=== PATIENT | female | born 1950 | race African-American/Black ===

== ENCOUNTER 2019-12-07 13:26 | Inpatient (IN) | payer MEDICARE ==
[~2019-12-07] VITALS: Ht 165.1 cm; Wt 79.8 kg
[~2019-12-07 13:26] MED LIST: ALENDRONATE SOD70 MG PO; CALAN SR240 MG PO; FERROUS SULFAT325 MG PO; FISH OIL 1,0001 CA1 PO; GLUCOPHAGE500 MG PO; HYDROCHLOROTH12.5 M1 PO; LEVAQUIN500 MG PO; LOVASTATIN20 MG PO; LOVENOX40 MG/0.4 SC; MAVIK2 MG PO; MULTIPLE VITAMI1 TA1 PO; NIACIN250 MG PO; OS-CAL500 MG PO; OYST-CAL-5001 TAB PO; PERCOCET 10/3251 TA1 PO; TRIGLIDE160 MG PO
[2019-12-07] MEDS ORDERED: VERELAN180 MG PO (13:33)
[2019-12-07] MEDS ORDERED: CELEBREX200 MG PO (13:35)
[2019-12-07 14:23] LABS: ANION GAP 18.4 mmol/L (8-16); CARBON DIOXIDE 19.8 mmol/L (21.0-32.0); CREATININE - SERUM 1.7 mg/dL (0.6-1.3); POTASSIUM - SERUM 5.2 mmol/L (3.5-5.1)
[2019-12-07 14:31] LABS: ALBUMIN 2.3 g/dL (3.4-5.0); BILIRUBIN - TOTAL 0.58 mg/dL (0.2-1.3); URIC ACID 6.9 mg/dL (2.6-7.2)
[2019-12-07 14:47] LABS: HEMATOCRIT 28.7 % (36.0-48.0); HEMOGLOBIN 8.9 g/dL (12-16); MCH 27.2 pg (26.0-34.0); MCV 87.8 fL (80.0-100.0); MEAN PLATELET VOLUME 8.9 fL (7.4-10.4); PLATELET COUNT 623 10x3/uL (130-400); RBC 3.27 10x6/uL (4.00-5.40); RDW 14.3 % (11.5-14.5); WBC 109.7 10x3/uL (4.8-10.8)
[2019-12-07 15:21] LABS: CKMB 0.4 U/L (0.0-3.6); CREATINE KINASE 59 UL (21-215); TROPONIN-I < 0.017 ng/mL (0.000-0.060)
[2019-12-07 15:28] LABS: EOSINOPHILS 2 % (0-7); LYMPHOCYTES 71 % (15-50); MONOCYTES 2 % (2-11); NEUTROPHILS 25 % (40-80); PLATELET ESTIMATE INCREASED
[2019-12-07 16:18] LABS: ERYTHROCYTE SEDIMENTATION RATE 124 mm/hr (0-30)
[2019-12-07 16:21] VITALS: BP 120/56
--- NOTE | 2019-12-07 16:25 | NUR ---
PT TO CT
--- NOTE | 2019-12-07 16:56 | NUR ---
FLU SWAB TO LAB
--- NOTE | 2019-12-07 17:49 | NUR ---
URINE TO LAB
[2019-12-07 18:00] LABS: BILIRUBIN NEGATIVE (NEGATIVE); GLUCOSE NEGATIVE (NEGATIVE); KETONE SMALL mg/dL (NEGATIVE); NITRITE NEGATIVE (NEGATIVE); SPECIFIC GRAVITY 1.015 (1.005-1.020); UROBILINOGEN NORMAL (NORMAL)
--- NOTE | 2019-12-07 19:59 | NUR ---
REPORT TO SHIRA Villanueva RN
[2019-12-07 20:21] VITALS: BP 122/61
--- NOTE | 2019-12-07 21:00 | NUR ---
PATIENT TO ROOM 2238 VIA STRETCHER. TRANSFERED TO BED X4 ASSIST. NO S/S OF DISTRESS OBSERVED, RR EVEN AND UNLABORED ON ROOM AIR. VSS. PIV TO LT HAND INFUSING NS @100ML/HR. PATIENT DENIES NEEDS AT THIS TIME. CL IN REACH, BED LOCKED AND LOWERED. WILL CTM. QUICK START COMPLETED.
[2019-12-07 21:31] VITALS: BP 138/67; BMI 29.3
[2019-12-08] VITALS: BP 123/55
[2019-12-08 04:00] VITALS: BP 140/68
--- NOTE | 2019-12-08 04:53 | NUR ---
ASSISTED PATIENT TO VOID IN BEDPAN.
[2019-12-08 06:25] LABS: ALBUMIN 1.8 g/dL (3.4-5.0); BILIRUBIN - TOTAL 0.43 mg/dL (0.2-1.3); CALCIUM 8.8 mg/dL (8.5-10.1); CARBON DIOXIDE 22.4 mmol/L (21.0-32.0); CREATININE - SERUM 1.4 mg/dL (0.6-1.3); MAGNESIUM - SERUM 1.4 mg/dL (1.8-2.4); PHOSPHOROUS 2.5 mg/dL (2.5-4.9); PROTEIN - SERUM 6.4 g/dL (6.4-8.2)
[2019-12-08 06:26] LABS: ANION GAP 17.8 mmol/L (8-16); POTASSIUM - SERUM 4.2 mmol/L (3.5-5.1)
--- NOTE | 2019-12-08 06:35 | NUR ---
MAGNESIUM 1.4 THIS AM. COVERED PER PROTOCOL.
[2019-12-08 06:43] LABS: BASOPHILS 0.1 % (0-2); EOSINOPHILS 0 % (0-7); HEMATOCRIT 23.4 % (36.0-48.0); IMMATURE GRANULOCYTES 0.3 % (0-5); LYMPHOCYTES 84.2 % (15-50); MCHC 30.8 g/dL (31.0-37.0); MCV 87.6 fL (80.0-100.0); MEAN PLATELET VOLUME 8.8 fL (7.4-10.4); MONOCYTES 3.2 % (2-11); NEUTROPHILS 12.2 % (40-80); PLATELET COUNT 533 10x3/uL (130-400); RBC 2.67 10x6/uL (4.00-5.40); RDW 14.3 % (11.5-14.5)
--- NOTE | 2019-12-08 07:05 | NUR ---
ALERT AND ORIENTED. NO C/O PAIN. NO S/S OF ACUTE DISTRESS NOTED. DENIES ANY NEEDS AT THIS TIME. CALL LIGHT IN REACH. WILL CONTINUE TO MONITOR.
[2019-12-08 07:27] LABS: WBC 91.9 10x3/uL (4.8-10.8)
[2019-12-08 07:29] LABS: HEMOGLOBIN 7.2 g/dL (12-16)
--- NOTE | 2019-12-08 09:24 | NUR ---
STARTED INFUSION OF 1ST UNIT OF PRBCS.
[2019-12-08 13:01] VITALS: BP 134/70
[2019-12-08 14:08] LABS: PATH REVIEW PERIPHERAL SMEAR REVIEWED
[2019-12-08 14:55] VITALS: Ht 165.1 cm; Wt 79.8 kg
[2019-12-08 16:34] LABS: % SATURATION 8 % (15-55); IRON 17 ug/dl (35-150); TOTAL IRON BIND CAPACITY 192 ug/dl (260-445); UNSAT IRON BIND CAPACITY 175 ug/dl (150-375)
[2019-12-08 17:24] VITALS: BP 171/79
--- NOTE | 2019-12-08 18:25 | NUR ---
ALERT AND ORIENTED. NO C/O PAIN. NO S/S OF ACUTE DISTRESS NOTED. DENIES ANY NEEDS AT THIS TIME. CALL LIGHT IN REACH. WILL CONTINUE TO MONITOR.
[2019-12-08 18:28] LABS: HEMATOCRIT 32.3 % (36.0-48.0); HEMOGLOBIN 10.4 g/dL (12-16)
[2019-12-08 20:00] VITALS: BP 131/81
--- NOTE | 2019-12-09 00:53 | NUR ---
RESTING IN BED WITH CALL LIGHT AND WATER IN REACH. REMAINS ON BEDREST. IV TO LEFT WRIST WITH NS AT 50ML/HR. SWELLING NOTED TO RIGHT HAND.
[2019-12-09 04:00] VITALS: BP 138/79
[2019-12-09 07:00] LABS: BASOPHILS 0.1 % (0-2); EOSINOPHILS 0 % (0-7); HEMATOCRIT 32.2 % (36.0-48.0); HEMOGLOBIN 10.2 g/dL (12-16); IMMATURE GRANULOCYTES 0.4 % (0-5); LYMPHOCYTES 84.9 % (15-50); MCH 27.3 pg (26.0-34.0); MCHC 31.7 g/dL (31.0-37.0); MCV 86.1 fL (80.0-100.0); MEAN PLATELET VOLUME 8.7 fL (7.4-10.4); MONOCYTES 3.2 % (2-11); NEUTROPHILS 11.4 % (40-80); PLATELET COUNT 462 10x3/uL (130-400); RBC 3.74 10x6/uL (4.00-5.40); RDW 14.6 % (11.5-14.5)
[2019-12-09 07:05] LABS: WBC 89.8 10x3/uL (4.8-10.8)
--- NOTE | 2019-12-09 07:05 | NUR ---
ALERT AND ORIENTED. NO C/O PAIN. NO S/S ACUTE DISTRESS NOTED. DENIES ANY NEEDS AT THIS TIME. SWELLING INCREASED THIS AM TO BILATERAL HANDS. CALL LIGHT IN REACH. WILL CONTINUE TO MONITOR.
[2019-12-09 07:07] LABS: ALBUMIN 1.8 g/dL (3.4-5.0); BILIRUBIN - TOTAL 0.57 mg/dL (0.2-1.3); CALCIUM 8.9 mg/dL (8.5-10.1); CARBON DIOXIDE 21.6 mmol/L (21.0-32.0); CREATININE - SERUM 1.2 mg/dL (0.6-1.3); MAGNESIUM - SERUM 1.3 mg/dL (1.8-2.4); PHOSPHOROUS 1.9 mg/dL (2.5-4.9); POTASSIUM - SERUM 4.6 mmol/L (3.5-5.1); PROTEIN - SERUM 6.8 g/dL (6.4-8.2)
[2019-12-09 09:32] VITALS: BP 186/96
[2019-12-09 12:40] VITALS: BP 190/88
[2019-12-09 16:53] VITALS: BP 140/80
--- NOTE | 2019-12-09 18:35 | NUR ---
I have reviewed this patient and I concur with the Shift Assessment completed by the Licensed Practical Nurse today this shift.
--- NOTE | 2019-12-09 18:45 | NUR ---
ALERT AND ORIENTED. NO C/O PAIN. NO S/S OF ACUTE DISTRESS NOTED. DENIES ANY NEEDS AT THIS TIME. CALL LIGHT IN REACH. WILL CONTINUE TO MONITOR.
[2019-12-09 20:00] VITALS: BP 120/69
--- NOTE | 2019-12-09 21:01 | NUR ---
OT NOTE: PT APPEARS UPSET AND ANGERY. PT STATED SHE IS NOT "GETTING ENOUGH PAIN MEDICATION." FAMILY MEMBER AGREED. FAMILY WANTED BRICE TO ENTER ANOTHER PATIENTS ROOM IN ORDER TO SEE IF MD IS PRESENT. BRICE NOIFIED NURSING OF SITUATION. NURSING AWARE. PT RECEIVED SCHEDULED PAIN RELIEF. PT COMPLETED SITTING BALANCE WITH SBA. PT REFUSED TO PARTICPATE IN FURTHER THERAPY TODAY. [id number] THANK YOU,BABS CAVAZOS
--- NOTE | 2019-12-10 02:41 | NUR ---
alert and orented able to voice needs and wants to staff. IV in place to left hand. no s/s of distress. call light and water in reach.
[2019-12-10 04:00] VITALS: BP 100/67
[2019-12-10 05:04] LABS: HEMATOCRIT 31.8 % (36.0-48.0); HEMOGLOBIN 10.1 g/dL (12-16); MCH 27.4 pg (26.0-34.0); MCHC 31.8 g/dL (31.0-37.0); MCV 86.2 fL (80.0-100.0); PLATELET COUNT 430 10x3/uL (130-400); RBC 3.69 10x6/uL (4.00-5.40); RDW 14.7 % (11.5-14.5); WBC 88.9 10x3/uL (4.8-10.8)
--- NOTE | 2019-12-10 05:09 | NUR ---
LAB CALLED WITH CRITICAL HIGH WHITE BLOOD COUNT OF 88.9 ON 12-09-19 WBC WAS 91.9 12-08-19 WBC WAS 109
[2019-12-10 05:11] LABS: ALBUMIN 1.7 g/dL (3.4-5.0); ANION GAP 12.5 mmol/L (8-16); BILIRUBIN - TOTAL 0.39 mg/dL (0.2-1.3); CALCIUM 9.3 mg/dL (8.5-10.1); CARBON DIOXIDE 24.1 mmol/L (21.0-32.0); CREATININE - SERUM 1.3 mg/dL (0.6-1.3); MAGNESIUM - SERUM 1.3 mg/dL (1.8-2.4); POTASSIUM - SERUM 4.6 mmol/L (3.5-5.1); PROTEIN - SERUM 6.7 g/dL (6.4-8.2)
[2019-12-10 05:12] LABS: PHOSPHOROUS 2.8 mg/dL (2.5-4.9)
[2019-12-10 05:18] LABS: LYMPHOCYTES 79 % (15-50); MONOCYTES 2 % (2-11); NEUTROPHILS 19 % (40-80); PLATELET ESTIMATE NORMAL
--- NOTE | 2019-12-10 07:10 | NUR ---
ALERT AND ORIENTED. NO C/O PAIN. NO S/S OF ACUTE DISTRESS NOTED. UP WITH PHYSICAL THERAPY. IV TO LEFT HAND, NS INFUSING @ 25ML/HR. SITE PATENT WITHOUT REDNESS OR SWELLING. ON ELECTROLYTE PROTOCOL, MAGNESIUM LOW AGAIN THIS AM. WILL FOLLOW PROTOCOL. DENIES ANY NEEDS AT THIS TIME. CALL LIGHT IN REACH. WILL CONTINUE TO MONITOR.
[2019-12-10 08:17] VITALS: BP 129/76
[2019-12-10 11:00] VITALS: BP 151/79
--- NOTE | 2019-12-10 13:25 | MORECARE ---
CASE MANAGEMENT DISCHARGE SUMMARY PATIENT: IDALIA SPAULDING UNIT: [id number] ADM DATE: 12/07/19 AGE: 69 : 48 SEX: F ROOM/BED: D.[facility]8 AUTHOR: LOBITO POLK PHYSICIAN: REFERRING PHYSICIAN: LENA SMITH MD DATE OF SERVICE: 12/10/19 Discharge Plan Patient Name: IDALIA SPAULDING Facility: [facility]:[place] : 1950 Planned Disposition: Home Anticipated Discharge Date: Discharge Date: Expected LOS: Initial Reviewer: [email or web address] Initial Review Date: 12/10/2019 Generated: 12/10/19 2:24 pm Patient Name: IDALIA SPAULDING Page [id number] at 1325 All edits/amendments must be made on the electronic document DICTATION DATE: 12/10/19 1324 TRANSLATOR INTERPRETER: KADEEM 12/10/19 1324 RPT#: [id number] DC DATE: STATUS: ADM IN [facility] [address] [place] [address] END OF REPORT
--- NOTE | 2019-12-10 13:33 | MORECARE ---
CASE MANAGEMENT DISCHARGE SUMMARY PATIENT: IDALIA SPAULDING UNIT: [id number] ADM DATE: 12/07/19 AGE: 69 : 48 SEX: F ROOM/BED: D.[facility]8 AUTHOR: LOBITO POLK PHYSICIAN: REFERRING PHYSICIAN: LENA SMITH MD DATE OF SERVICE: 12/10/19 Discharge Plan Patient Name: IDALIA SPAULDING Facility: [facility]:[place] : 1950 Planned Disposition: Home Anticipated Discharge Date: Discharge Date: Expected LOS: Initial Reviewer: [email or web address] Initial Review Date: 12/10/2019 Generated: 12/10/19 2:33 pm DCPIA - Discharge Planning Initial Assessment Updated by [email or web address]: Sabi Irvin on 12/10/19 1:31 pm * Is the patient Alert and Oriented? Yes * How many steps to enter\exit or inside your home? several/0 * PCP Dr. Shirley * Pharmacy [facility] in [place] * Preadmission Environment Home with Family * ADLs Partial Dependent * Partial ADLs (Assistance needed) Ambulation * Equipment Bedside Commode Rolling Walker Shower Chair * List name and contact numbers for known caregivers / representatives who currently or will assist patient after discharge: Cisco - spouse - [phone] Alexsandra Santos - sister - [phone] * Verbal permission to speak to the caregivers and representatives has been obtained from the patient. Yes * Community resources currently utilized None * Additional services required to return to the preadmission environment? No * Can the patient safely return to the preadmission environment? Yes * Has this patient been hospitalized within the prior 30 days at any hospital? No Last DP export: 12/10/19 12:25 p Patient Name: IDALIA SPAULDING Page 46642 at 1333 All edits/amendments must be made on the electronic document DICTATION DATE: 12/10/19 1333 MOBILE SERVICE RV TECHNICIAN: KADEEM 12/10/19 1333 RPT#: [id number] DC DATE: STATUS: ADM IN [place] [address] [place] [address] END OF REPORT
--- NOTE | 2019-12-10 13:43 | MORECARE ---
CASE MANAGEMENT DISCHARGE SUMMARY PATIENT: IDALIA SPAULDING UNIT: [id number] ADM DATE: 12/07/19 AGE: 69 : 48 SEX: F ROOM/BED: D.2238 AUTHOR: JAM,DOC PHYSICIAN: REFERRING PHYSICIAN: LENA SMITH MD DATE OF SERVICE: 12/10/19 Discharge Plan Patient Name: IDALIA SPAULDING Facility: [facility]:[place] : 1950 Planned Disposition: Home Anticipated Discharge Date: Discharge Date: Expected LOS: Initial Reviewer: [email or web address] Initial Review Date: 12/10/2019 Generated: 12/10/19 2:42 pm DCP- Discharge Planning Updated by [email or web address]: Sabi Irvin on 12/10/19 12:[address] Patient Name: IDALIA SPAULDING Admission Status: ER Accout number: [id number] Admission Date: 12-07-2019 : 1950 Admission Diagnosis:CHRONIC LYMPHOCYTIC LEUK OF B-CELL TYPE NOT ACHIEVE REM Attending: LENA SMITH Current LOS: 3 Anticipated DC Date: Planned Disposition: Home Primary Insurance: [facility] [employer] Discharge Planning Comments: CM met with patient to complete initial dc planning assessment. CM educated patient on the CM role and verbal consent given by patient to complete assessment. Patient lives at home with her spouse, I verified address and phone numbers. At discharge patient plans to return and feels this is a safe discharge. CM discussed availability of home health, rehab services, and medical equipment. Patient states she may need home health, but would like to discuss this with her . Her is at lunch at this time, so I will meet back with her and her when he returns. CM will continue to follow and will assist as needed with dc plans/needs. Intelligence Applications: Sabi Irvin DCPIA - Discharge Planning Initial Assessment Updated by [email or web address]: Sabi Irvin on 12/10/19 1:31 pm * Is the patient Alert and Oriented? Yes * How many steps to enter\exit or inside your home? several/0 * PCP Dr. Shirley * Pharmacy [facility] in [place] * Preadmission Environment Home with Family * ADLs Partial Dependent * Partial ADLs (Assistance needed) Ambulation * Equipment Bedside Commode Rolling Walker Shower Chair * List name and contact numbers for known caregivers / representatives who currently or will assist patient after discharge: Cisco - spouse - [phone] Alexsandra Santos - sister - [phone] * Verbal permission to speak to the caregivers and representatives has been obtained from the patient. Yes * Community resources currently utilized None * Additional services required to return to the preadmission environment? No * Can the patient safely return to the preadmission environment? Yes * Has this patient been hospitalized within the prior 30 days at any hospital? No Last DP export: 12/10/19 12:33 p Patient Name: IDALIA SPAULDING Page 75006 at 1343 All edits/amendments must be made on the electronic document DICTATION DATE: 12/10/19 1342 PURIFICATION DIRECTOR: KADEEM 12/10/19 1342 RPT#: [id number] DC DATE: STATUS: ADM IN [facility] [address] [place] [address] END OF REPORT
[2019-12-10 13:52] VITALS: BP 90/55
--- NOTE | 2019-12-10 15:32 | MORECARE ---
CASE MANAGEMENT DISCHARGE SUMMARY PATIENT: IDALIA OTOOLE UNIT: [id number] ADM DATE: 12/07/19 AGE: 69 : 48 SEX: F ROOM/BED: D.2238 AUTHOR: LOBITO POLK PHYSICIAN: REFERRING PHYSICIAN: LENA SMITH MD DATE OF SERVICE: 12/10/19 Discharge Plan Patient Name: IDALIA OTOOLE Facility: [facility]:[place] : 1950 Planned Disposition: Home Anticipated Discharge Date: Discharge Date: Expected LOS: Initial Reviewer: [email or web address] Initial Review Date: 12/10/2019 Generated: 12/10/19 4:32 pm Comments DCP- Discharge Planning Updated by [email or web address]: Sabi Brandee on 12/10/19 2:[address] CM met with patient and her spouse. I discussed rehab vs home health vs op physical therapy. They would like to do home health for therapy at this time and feels she will be safe to discharge home when medically stable with home health. RAFAELA for [facility]. DCP- Discharge Planning Updated by [email or web address]: Sabi Irvin on 12/10/19 12:[address] Patient Name: IDALIA OTOOLE Admission Status: ER Accout number: [id number] Admission Date: 12-07-2019 : 1950 Admission Diagnosis:CHRONIC LYMPHOCYTIC LEUK OF B-CELL TYPE NOT ACHIEVE REM Attending: LENA SMITH Current LOS: 3 Anticipated DC Date: Planned Disposition: Home Primary Insurance: [facility] MEDIC[facility] SOLUTIONS Discharge Planning Comments: CM met with patient to complete initial dc planning assessment. CM educated patient on the CM role and verbal consent given by patient to complete assessment. Patient lives at home with her spouse, I verified address and phone numbers. At discharge patient plans to return and feels this is a safe discharge. CM discussed availability of home health, rehab services, and medical equipment. Patient states she may need home health, but would like to discuss this with her . Her is at lunch at this time, so I will meet back with her and her when he returns. CM will continue to follow and will assist as needed with dc plans/needs. Clearance Center Manager: Sabi Irvin DCPIA - Discharge Planning Initial Assessment Updated by [email or web address]: Sabi Irvin on 12/10/19 1:31 pm * Is the patient Alert and Oriented? Yes * How many steps to enter\exit or inside your home? several/0 * PCP Dr. Shirley * Pharmacy [facility] in [place] * Preadmission Environment Home with Family * ADLs Partial Dependent * Partial ADLs (Assistance needed) Ambulation * Equipment Bedside Commode Rolling Walker Shower Chair * List name and contact numbers for known caregivers / representatives who currently or will assist patient after discharge: Cisco - spouse - [phone] Alexsandra Santos - sister - [phone] * Verbal permission to speak to the caregivers and representatives has been obtained from the patient. Yes * Community resources currently utilized None * Additional services required to return to the preadmission environment? No * Can the patient safely return to the preadmission environment? Yes * Has this patient been hospitalized within the prior 30 days at any hospital? No Coverage Notice Reviewer: [id number] Irvin Notice Issued Date-Time: 12/10/2019 15:19 Notice Type: IM Discharge Notice Notice Delivered To: Family Member Relationship to Patient: Spouse Data Processing Specialist Name: Cisco Otoole Delivery Method: HAND - Hand Delivered Chica Days: Prior Verbal Notification: Recipient Understood Notice: Yes Recipient Signature: Yes Med Rec Note Co-signed by Attending: Coverage Notice Comment: IMM explained, signed, given, copy placed in MR Reviewer: [id number] Irvin Notice Issued Date-Time: 12/10/2019 15:19 Notice Type: Patient Choice Letter Notice Delivered To: Family Member Relationship to Patient: Spouse Data Processing Specialist Name: Cisco Delivery Method: HAND - Hand Delivered Chica Days: Prior Verbal Notification: Recipient Understood Notice: Yes Recipient Signature: Yes Med Rec Note Co-signed by Attending: Coverage Notice Comment: RAFAELA for [facility] Last DP export: 12/10/19 12:43 p Patient Name: IDALIA OTOOLE Page 19371 at 1532 All edits/amendments must be made on the electronic document DICTATION DATE: 12/10/19 1532 PICKLING MACHINE OPERATOR: KADEEM 12/10/19 1532 RPT#: [id number] DC DATE: STATUS: ADM IN [facility] [address] [place] [address] END OF REPORT
--- NOTE | 2019-12-10 16:20 | NUR ---
I have reviewed this patient and I concur with the Shift Assessment completed by the Licensed Practical Nurse today this shift.
--- NOTE | 2019-12-10 17:23 | NUR ---
OT NOTE: PT UPRIGHT IN CHAIR. PT COMPLETED SIT TO STANDS WITH MIN A. PT COMPLETED STATIC STANDING BALANCE/ENDURANCE DURING ADLS WITH MIN A. PT COMPLETED BATHING TASKS WITH MAX A X2 SECONDARY TO PT LACK OF MATTRESS MAKER. [phone] THANK YOU,BABS CAVAZOS
--- NOTE | 2019-12-10 17:28 | NUR ---
OT NOTE: PT REQUESTING ASSIST WITH BATHING. PT REMAINS UNABLE TO USE B HANDS DUE TO SEVERE PAIN AND INTOLERANCE OF MOVEMENT OF FINGERS. PT SITTING IN CHAIR; REQUIRED MAX ASSIST WITH UE/LE BATHING; MAX ASSIST WITH WASHING FACE; MAX ASSIST FOR DRINKING..HOWEVER, TODAY PT PERFORMED MUCH BETTER WITH STATIC STANDING. REQUIRED MOD ASSIST X 2 FOR SIT TO STAND FROM CHAIR LEVEL; PT ABLE TO STAND WHILE THERAPIST HELD UNDER HER ARMS TO PROVIDE SUPPORT. WHILE IN STANDING, OTHER THERAPIST PERFORMED PERINEAL CARE. WITH ASSIST X 2, PT WAS ABLE TO SHIFT WT FROM SIDE TO SIDE AND ALSO FORWARD ON TO TOES AND BACKWARDS.. LOB NOTED WITH WT SHIFT BACKWARDS.. PT TOLERATED STANDING FOR APPROX 4-5 MIN WITH MIN ASSIST X 2; BRICE FINISHED UP WITH PROM EXS. LUIS ANGEL LAWSON, OTR/L [phone]
--- NOTE | 2019-12-10 18:40 | NUR ---
ALERT AND ORIENTED. NO C/O PAIN. NO S/S OF ACUTE DISTRESS NOTED. DENIES ANY NEEDS AT THIS TIME. CALL LIGHT IN REACH. WILL CONTINUE TO MONITOR.
[2019-12-10 23:51] VITALS: BP 106/64
[2019-12-11 04:00] VITALS: BP 136/76
[2019-12-11 05:48] LABS: ALBUMIN 1.7 g/dL (3.4-5.0); ANION GAP 11.6 mmol/L (8-16); BILIRUBIN - TOTAL 0.4 mg/dL (0.2-1.3); CALCIUM 9.5 mg/dL (8.5-10.1); CARBON DIOXIDE 24.9 mmol/L (21.0-32.0); CREATININE - SERUM 1.5 mg/dL (0.6-1.3); PHOSPHOROUS 3.4 mg/dL (2.5-4.9); POTASSIUM - SERUM 4.5 mmol/L (3.5-5.1); PROTEIN - SERUM 6.7 g/dL (6.4-8.2)
[2019-12-11 05:50] LABS: MAGNESIUM - SERUM 1.9 mg/dL (1.8-2.4)
[2019-12-11 06:11] LABS: BASOPHILS 0.1 % (0-2); EOSINOPHILS 0 % (0-7); HEMATOCRIT 32.7 % (36.0-48.0); HEMOGLOBIN 10.2 g/dL (12-16); IMMATURE GRANULOCYTES 0.3 % (0-5); MCH 27.3 pg (26.0-34.0); MCHC 31.2 g/dL (31.0-37.0); MCV 87.7 fL (80.0-100.0); MEAN PLATELET VOLUME 9.2 fL (7.4-10.4); MONOCYTES 2.9 % (2-11); NEUTROPHILS 10.7 % (40-80); PLATELET COUNT 406 10x3/uL (130-400); RBC 3.73 10x6/uL (4.00-5.40); RDW 14.9 % (11.5-14.5); WBC 84.9 10x3/uL (4.8-10.8)
--- NOTE | 2019-12-11 07:55 | NUR ---
REPORT RECEIVED. WILL CONTINUE WITH POC. PT CURRENTLY LYING SEMI FOWLERS. CALL LIGHT W/I REACH. PT IS AAO AND UP WITH ASSIST. RR EVEN AND UNLABORED ON RA. NO PIV NOTED. NO S/S OF DISTRESS NOTED. REPOSITIONED PT IN BED. PT DENIES ANY FURTHER NEEDS AT THIS TIME. WILL CTM.
[2019-12-11 08:47] VITALS: BP 144/82
[2019-12-11 12:38] VITALS: BP 127/70
--- NOTE | 2019-12-11 13:30 | NUR ---
Nutrition follow-up: Diet: ADA consistent CHO PO Intake 75% of last 3 meals Pt is requiring some assistance with meals due to stiff hands labs reviewwed Wt: 175# RDN following.
--- NOTE | 2019-12-11 14:19 | NUR ---
I have reviewed this patient and I concur with the Shift Assessment completed by the Licensed Practical Nurse today this shift.
[2019-12-11 17:16] VITALS: BP 106/61
--- NOTE | 2019-12-11 18:58 | NUR ---
OT NOTE: PT COMPLETED BED MOB WITH SUPINE TO SIT WITH CGA. PT COMPLETED BED TO CHAIR TRANSFER WITH CGA-MIN A. PT EXHIBITED INCREASED FUNCTIONAL INDEPENDENCE THIS SESSION THAN PREVIOUS SESSION. [phone] THANK YOU,BABS CAVAZOS
[2019-12-11 20:00] VITALS: BP 128/70
[2019-12-12 04:00] VITALS: BP 126/75
--- NOTE | 2019-12-12 05:20 | NUR ---
I have reviewed this patient and I concur with the Shift Assessment completed by the Licensed Practical Nurse today this shift.
[2019-12-12 06:34] LABS: ALBUMIN 1.7 g/dL (3.4-5.0); ANION GAP 12.2 mmol/L (8-16); BILIRUBIN - TOTAL 0.38 mg/dL (0.2-1.3); CALCIUM 9.7 mg/dL (8.5-10.1); CARBON DIOXIDE 26.2 mmol/L (21.0-32.0); CREATININE - SERUM 1.3 mg/dL (0.6-1.3); MAGNESIUM - SERUM 1.6 mg/dL (1.8-2.4); PHOSPHOROUS 3.6 mg/dL (2.5-4.9); POTASSIUM - SERUM 4.4 mmol/L (3.5-5.1); PROTEIN - SERUM 6.7 g/dL (6.4-8.2)
[2019-12-12 06:38] LABS: HEMATOCRIT 32.1 % (36.0-48.0); HEMOGLOBIN 10.1 g/dL (12-16); MCH 27.7 pg (26.0-34.0); MCHC 31.5 g/dL (31.0-37.0); MCV 87.9 fL (80.0-100.0); MEAN PLATELET VOLUME 9.2 fL (7.4-10.4); PLATELET COUNT 393 10x3/uL (130-400); RBC 3.65 10x6/uL (4.00-5.40); RDW 14.8 % (11.5-14.5); WBC 74.5 10x3/uL (4.8-10.8)
--- NOTE | 2019-12-12 07:37 | NUR ---
PT SITTING UP IN BED. RR EVEN AND UNLABORED. FAMILY MEMEBER AT BEDSIDE. BED IN LOWEST POSITION. CALL LIGHT WITHIN REACH. DENIES NEEDS OR PAIN AT THIS TIME. WILL CONTINUE TO MONITOR.
[2019-12-12 07:47] LABS: LYMPHOCYTES 79 % (15-50); MONOCYTES 1 % (2-11); NEUTROPHILS 20 % (40-80); PLATELET ESTIMATE NORMAL; SMUDGE CELLS 3+
[2019-12-12 08:33] VITALS: BP 128/72
--- NOTE | 2019-12-12 11:40 | NUR ---
DENIES NEEDS OR PAIN AT THIS TIME. CALL LIGHT WITHIN REACH. BED IN LOWEST POSITION. WILL CONTINUE TO MONITOR. FAMILY AT BEDSIDE/
[2019-12-12 12:28] VITALS: BP 130/79
--- NOTE | 2019-12-12 12:46 | NUR ---
ARU NOTE - Patient is managed care and will be evaluated by ARU staff on Saturday.
--- NOTE | 2019-12-12 13:03 | NUR ---
PT SITTING UP IN CHAIR. IN ROOM. ANSWERED CALL LIGHT, PT ASSISTED TO BATHROOM X2 ASSIST. PT BACK TO CHAIR. EATING LUNCH AT THIS TIME. DENIES FURTHER NEEDS OR PAIN AT THIS TIME. CALL LIGHT WITHIN REACH. WILL CONTINUE TO MONITOR.
--- NOTE | 2019-12-12 14:10 | NUR ---
ASSISTED WITH BATHROOM NEEDS.PATIENT BACK TO CHAIR.FAMILY IN ROOM
[2019-12-12 16:39] VITALS: BP 112/64
[2019-12-12] MEDS ORDERED: PREDNISONE10 MG PO (17:59)
[2019-12-12 19:46] VITALS: BP 174/74
[2019-12-13 01:20] VITALS: BP 128/82
[2019-12-13 05:12] VITALS: BP 110/89
--- NOTE | 2019-12-13 07:05 | NUR ---
ALERT AND ORIENTED. UP WITH ASSIST. 5TH TOE ON RIGHT FOOT FX. NO C/O PAIN. NO S/S OF ACUTE DISTRESS NOTED. ON TELEMETRY 81 SR. DENIES ANY NEEDS AT THIS TIME. CALL LIGHT IN REACH. WILL CONTINUE TO MONITOR.
[2019-12-13 08:21] VITALS: BP 148/70
--- NOTE | 2019-12-13 10:08 | NUR ---
SITTING UP IN CHAIR,WITHOUT DISTRESS.
--- NOTE | 2019-12-13 11:15 | NUR ---
DISCHARGED PATIENT HOME WITH VIA WHEELCHAIR. WENT OVER DISCHARGE INSTRUCTIONS WITH PATIENT AND SPOUSE, BOTH VERBALIZED UNDERSTANDING. DENIES ANYTHING FURTHER.
--- NOTE | 2019-12-13 11:37 | MORECARE ---
CASE MANAGEMENT DISCHARGE SUMMARY PATIENT: IDALIA OTOOLE UNIT: [id number] ADM DATE: 12/07/19 AGE: 69 : 48 SEX: F ROOM/BED: D.2238 AUTHOR: LOBITO POLK PHYSICIAN: REFERRING PHYSICIAN: LENA SMITH MD DATE OF SERVICE: 12/13/19 Discharge Plan Patient Name: IDALIA OTOOLE Facility: [facility]:[place] : 1950 Planned Disposition: Home Anticipated Discharge Date: Discharge Date: 12/13/2019 Expected LOS: Initial Reviewer: [email or web address] Initial Review Date: 12/10/2019 Generated: 12/13/19 12:36 pm Comments DCP- Discharge Planning Updated by [email or web address]: Sabi Brandee on 12/10/19 2:[address] CM met with patient and her spouse. I discussed rehab vs home health vs op physical therapy. They would like to do home health for therapy at this time and feels she will be safe to discharge home when medically stable with home health. RAFAELA for [facility]. DCP- Discharge Planning Updated by [email or web address]: Sabi Irvin on 12/10/19 12:[address] Patient Name: IDALIA OTOOLE Admission Status: ER Accout number: [id number] Admission Date: 12-07-2019 : 1950 Admission Diagnosis:CHRONIC LYMPHOCYTIC LEUK OF B-CELL TYPE NOT ACHIEVE REM Attending: LENA SMITH Current LOS: 3 Anticipated DC Date: Planned Disposition: Home Primary Insurance: [facility] [employer]UT[employer] Discharge Planning Comments: CM met with patient to complete initial dc planning assessment. CM educated patient on the CM role and verbal consent given by patient to complete assessment. Patient lives at home with her spouse, I verified address and phone numbers. At discharge patient plans to return and feels this is a safe discharge. CM discussed availability of home health, rehab services, and medical equipment. Patient states she may need home health, but would like to discuss this with her . Her is at lunch at this time, so I will meet back with her and her when he returns. CM will continue to follow and will assist as needed with dc plans/needs. Deployment Manager: Sabi Irvin DCPIA - Discharge Planning Initial Assessment Updated by [email or web address]: Sabi Irvin on 12/10/19 1:31 pm * Is the patient Alert and Oriented? Yes * How many steps to enter\exit or inside your home? several/0 * PCP Dr. Shirley * Pharmacy [facility] in [place] * Preadmission Environment Home with Family * ADLs Partial Dependent * Partial ADLs (Assistance needed) Ambulation * Equipment Bedside Commode Rolling Walker Shower Chair * List name and contact numbers for known caregivers / representatives who currently or will assist patient after discharge: Cisco - spouse - [phone] Alexsandra Santos - sister - [phone] * Verbal permission to speak to the caregivers and representatives has been obtained from the patient. Yes * Community resources currently utilized None * Additional services required to return to the preadmission environment? No * Can the patient safely return to the preadmission environment? Yes * Has this patient been hospitalized within the prior 30 days at any hospital? No External Providers [facility] Provider[facility] Next Contact Date: Service Request Date: Service Type: Resolution: Reviewer: Comments: Coverage Notice Reviewer: [email or web address] Claudine Irvin Notice Issued Date-Time: 12/10/2019 15:19 Notice Type: IM Discharge Notice Notice Delivered To: Family Member Relationship to Patient: Spouse Distillation Operator Helper Name: Cisco Otoole Delivery Method: HAND - Hand Delivered Ch[place] Days: Prior Verbal Notification: Recipient Understood Notice: Yes Recipient Signature: Yes Med Rec Note Co-signed by Attending: Coverage Notice Comment: IMM explained, signed, given, copy placed in MR Reviewer: [id number] Claudine Irvin Notice Issued Date-Time: 12/10/2019 15:19 Notice Type: Patient Choice Letter Notice Delivered To: Family Member Relationship to Patient: Spouse Distillation Operator Helper Name: Cisco Delivery Method: HAND - Hand Delivered Ch[place] Days: Prior Verbal Notification: Recipient Understood Notice: Yes Recipient Signature: Yes Med Rec Note Co-signed by Attending: Coverage Notice Comment: RAFAELA jarrett Poon [facility] Reviewer: [email or web address] Claudine Eldridge Notice Issued Date-Time: 12/13/2019 11:28 Notice Type: IM Discharge Notice Notice Delivered To: Patient Relationship to Patient: Distillation Operator Helper Name: Delivery Method: HAND - Hand Delivered Chica Days: Prior Verbal Notification: Recipient Understood Notice: Yes Recipient Signature: Yes Med Rec Note Co-signed by Attending: Coverage Notice Comment: Last DP export: 12/10/19 2:32 p Patient Name: IDALIA OTOOLE Page 96247 at 1137 All edits/amendments must be made on the electronic document DICTATION DATE: 12/13/19 1136 CARPENTER REPAIR: KADEEM 12/13/19 1136 RPT#: [id number] DC DATE:12/13/19 STATUS: DIS IN [facility] [address] [place] [address] END OF REPORT
--- NOTE | 2019-12-13 11:43 | MORECARE ---
CASE MANAGEMENT DISCHARGE SUMMARY PATIENT: IDALIA OTOOLE UNIT: [id number] ADM DATE: 12/07/19 AGE: 69 : 46 SEX: F ROOM/BED: D.2238 AUTHOR: JAM,DOC PHYSICIAN: REFERRING PHYSICIAN: LENA SMITH MD DATE OF SERVICE: 12/13/19 Discharge Plan Patient Name: IDALIA OTOOLE Facility: [facility]:[place] : 1950 Planned Disposition: Home Anticipated Discharge Date: 12/13/19 Discharge Date: 12/13/2019 Expected LOS: 6 Initial Reviewer: [id number] Initial Review Date: 12/10/2019 Generated: 12/13/19 12:43 pm Comments DCP- Discharge Planning Updated by [id number]: Michelle Eldridge on 12/13/19 10:[address] Patient Name: IDALIA OTOOLE Encounter No: [id number] : 1950 Primary Insurance: [employer] Anticipated DC Date: Planned Disposition: Home External Planned Provider: : DCP follow-up note: Patient and family in agreement with discharge plan. No changes to plan. REFERRAL FAXED TO [facility]. Case management will follow and assist as needed. Michelle Eldridge DCP- Discharge Planning Updated by [email or web address]: Sabi Irvin on 12/10/19 2:[address] CM met with patient and her spouse. I discussed rehab vs home health vs op physical therapy. They would like to do home health for therapy at this time and feels she will be safe to discharge home when medically stable with home health. RAFAELA for [facility]. DCP- Discharge Planning Updated by [id number]: Sabi Irvin on 12/10/19 12:[address] Patient Name: IDALIA OTOOLE Admission Status: ER Accout number: [id number] Admission Date: 12-07-2019 : 1950 Admission Diagnosis:CHRONIC LYMPHOCYTIC LEUK OF B-CELL TYPE NOT ACHIEVE REM Attending: LENA SMITH Current LOS: 3 Anticipated DC Date: Planned Disposition: Home Primary Insurance: [facility] MEDICARE SOLUTIONS Discharge Planning Comments: CM met with patient to complete initial dc planning assessment. CM educated patient on the CM role and verbal consent given by patient to complete assessment. Patient lives at home with her spouse, I verified address and phone numbers. At discharge patient plans to return and feels this is a safe discharge. CM discussed availability of home health, rehab services, and medical equipment. Patient states she may need home health, but would like to discuss this with her . Her is at lunch at this time, so I will meet back with her and her when he returns. CM will continue to follow and will assist as needed with dc plans/needs. Enterprise Application Administrator: Sabi Irvin DCPIA - Discharge Planning Initial Assessment Updated by [email or web address]: Sabi Irvin on 12/10/19 1:31 pm * Is the patient Alert and Oriented? Yes * How many steps to enter\exit or inside your home? several/0 * PCP Dr. Shirley * Pharmacy [facility] in [place] * Preadmission Environment Home with Family * ADLs Partial Dependent * Partial ADLs (Assistance needed) Ambulation * Equipment Bedside Commode Rolling Walker Shower Chair * List name and contact numbers for known caregivers / representatives who currently or will assist patient after discharge: Cisco - spouse - [phone] Alexsandra Santos - sister - [phone] * Verbal permission to speak to the caregivers and representatives has been obtained from the patient. Yes * Community resources currently utilized None * Additional services required to return to the preadmission environment? No * Can the patient safely return to the preadmission environment? Yes * Has this patient been hospitalized within the prior 30 days at any hospital? No Coverage Notice Reviewer: [email or web address] Claudine Irvin Notice Issued Date-Time: 12/10/2019 15:19 Notice Type: IM Discharge Notice Notice Delivered To: Family Member Relationship to Patient: Spouse Placer Miner Name: Cisco Otoole Delivery Method: HAND - Hand Delivered Chica Days: Prior Verbal Notification: Recipient Understood Notice: Yes Recipient Signature: Yes Med Rec Note Co-signed by Attending: Coverage Notice Comment: IMM explained, signed, given, copy placed in MR Reviewer: [id number] Claudine Irvin Notice Issued Date-Time: 12/10/2019 15:19 Notice Type: Patient Choice Letter Notice Delivered To: Family Member Relationship to Patient: Spouse Placer Miner Name: Cisco Delivery Method: HAND - Hand Delivered Chica Days: Prior Verbal Notification: Recipient Understood Notice: Yes Recipient Signature: Yes Med Rec Note Co-signed by Attending: Coverage Notice Comment: RAFAELA for [facility] Reviewer: [id number] Claudine Eldridge Notice Issued Date-Time: 12/13/2019 11:28 Notice Type: IM Discharge Notice Notice Delivered To: Patient Relationship to Patient: Placer Miner Name: Delivery Method: HAND - Hand Delivered Chica Days: Prior Verbal Notification: Recipient Understood Notice: Yes Recipient Signature: Yes Med Rec Note Co-signed by Attending: Coverage Notice Comment: Last DP export: 12/13/19 10:37 a Patient Name: IDALIA OTOOLE Page [id number] at 1143 All edits/amendments must be made on the electronic document DICTATION DATE: 12/13/19 1143 GETTER WELDER: KADEEM 12/13/19 1143 RPT#: [id number] DC DATE:12/13/19 STATUS: DIS IN [facility] [address] [place] [address] END OF REPORT
--- NOTE | 2019-12-13 17:08 | MORECARE ---
CASE MANAGEMENT DISCHARGE SUMMARY PATIENT: IDALIA OTOOLE UNIT: [id number] ADM DATE: 12/07/19 AGE: 69 : 48 SEX: F ROOM/BED: D.2238 AUTHOR: JAM,DOC PHYSICIAN: REFERRING PHYSICIAN: LENA SMITH MD DATE OF SERVICE: 12/13/19 Discharge Plan Patient Name: IDALAI OTOOLE Facility: [facility]:[place] : 1950 Planned Disposition: Home Anticipated Discharge Date: 12/13/19 Discharge Date: 12/13/2019 Expected LOS: 6 Initial Reviewer: [id number] Initial Review Date: 12/10/2019 Generated: 12/13/19 6:08 pm Comments DCP- Discharge Planning Updated by [email or web address]: Michelle Eldridge on 12/13/19 10:[address] Patient Name: IDALIA OTOOLE Encounter No: [id number] : 1950 Primary Insurance: [employer] Anticipated DC Date: Planned Disposition: Home External Planned Provider: : DCP follow-up note: Patient and family in agreement with discharge plan. No changes to plan. REFERRAL FAXED TO [facility]. Case management will follow and assist as needed. Michelle Jazmyn DCP- Discharge Planning Updated by [id number]: Sabi Irvin on 12/10/19 2:[address] CM met with patient and her spouse. I discussed rehab vs home health vs op physical therapy. They would like to do home health for therapy at this time and feels she will be safe to discharge home when medically stable with home health. RAFAELA for [facility]. DCP- Discharge Planning Updated by [email or web address]: Sabi Irvin on 12/10/19 12:[address] Patient Name: IDALIA OTOOLE Admission Status: ER Accout number: [id number] Admission Date: 12-07-2019 : 1950 Admission Diagnosis:CHRONIC LYMPHOCYTIC LEUK OF B-CELL TYPE NOT ACHIEVE REM Attending: LENA SMITH Current LOS: 3 Anticipated DC Date: Planned Disposition: Home Primary Insurance: [facility] MEDICARE SOLUTIONS Discharge Planning Comments: CM met with patient to complete initial dc planning assessment. CM educated patient on the CM role and verbal consent given by patient to complete assessment. Patient lives at home with her spouse, I verified address and phone numbers. At discharge patient plans to return and feels this is a safe discharge. CM discussed availability of home health, rehab services, and medical equipment. Patient states she may need home health, but would like to discuss this with her . Her is at lunch at this time, so I will meet back with her and her when he returns. CM will continue to follow and will assist as needed with dc plans/needs. Cytotechnologist Supervisor: Sabi Irvin DCPIA - Discharge Planning Initial Assessment Updated by [email or web address]: Sabi Irvin on 12/10/19 1:31 pm * Is the patient Alert and Oriented? Yes * How many steps to enter\exit or inside your home? several/0 * PCP Dr. Shirley * Pharmacy [facility] in [place] * Preadmission Environment Home with Family * ADLs Partial Dependent * Partial ADLs (Assistance needed) Ambulation * Equipment Bedside Commode Rolling Walker Shower Chair * List name and contact numbers for known caregivers / representatives who currently or will assist patient after discharge: Cisco - spouse - [phone] Alexsandra Santos - sister - [phone] * Verbal permission to speak to the caregivers and representatives has been obtained from the patient. Yes * Community resources currently utilized None * Additional services required to return to the preadmission environment? No * Can the patient safely return to the preadmission environment? Yes * Has this patient been hospitalized within the prior 30 days at any hospital? No Coverage Notice Reviewer: [id number] Claudine Irvin Notice Issued Date-Time: 12/10/2019 15:19 Notice Type: IM Discharge Notice Notice Delivered To: Family Member Relationship to Patient: Spouse Fringe Maker Name: Cisco Otoole Delivery Method: HAND - Hand Delivered Chica Days: Prior Verbal Notification: Recipient Understood Notice: Yes Recipient Signature: Yes Med Rec Note Co-signed by Attending: Coverage Notice Comment: IMM explained, signed, given, copy placed in MR Reviewer: [id number] Claudine Irvin Notice Issued Date-Time: 12/10/2019 15:19 Notice Type: Patient Choice Letter Notice Delivered To: Family Member Relationship to Patient: Spouse Fringe Maker Name: Cisco Delivery Method: HAND - Hand Delivered Chica Days: Prior Verbal Notification: Recipient Understood Notice: Yes Recipient Signature: Yes Med Rec Note Co-signed by Attending: Coverage Notice Comment: RAFAELA for [facility] Reviewer: [id number] Claudine Eldridge Notice Issued Date-Time: 12/13/2019 11:28 Notice Type: IM Discharge Notice Notice Delivered To: Patient Relationship to Patient: Fringe Maker Name: Delivery Method: HAND - Hand Delivered Ch[place] Days: Prior Verbal Notification: Recipient Understood Notice: Yes Recipient Signature: Yes Med Rec Note Co-signed by Attending: Coverage Notice Comment: Last DP export: 12/13/19 10:43 a Patient Name: IDALIA OTOOLE Page [phone] at 1708 All edits/amendments must be made on the electronic document DICTATION DATE: 12/13/191707 BUNCHER MACHINE: KADEEM 12/13/191707 RPT#: [id number] DC DATE:12/13/19 STATUS: DIS IN [facility] [address] [place] [address] END OF REPORT
== END 2019-12-13 11:16 | disposition home health service (06) | DRG 840 ==
LOC: D.ER 13:26 → D.MS 19:09 → D.SDCHOLD 12-08 12:07 → D.MS 12-13 11:16
PROVIDERS: Family Medicine; ADMIT Internal Medicine Nephrology; ATTEND Internal Medicine Nephrology
DX: C91.10 Chronic lymphocytic leukemia of B-cell type not having achieved remission (principal); E43 Unspecified severe protein-calorie malnutrition; E87.1 Hypo-osmolality and hyponatremia; N17.9 Acute kidney failure, unspecified; D63.0 Anemia in neoplastic disease; E11.65 Type 2 diabetes mellitus with hyperglycemia; I10 Essential (primary) hypertension; E78.5 Hyperlipidemia, unspecified; M10.9 Gout, unspecified; M19.90 Unspecified osteoarthritis, unspecified site; M84.375A Stress fracture, left foot, initial encounter for fracture; M79.641 Pain in right hand; R60.0 Localized edema

== ENCOUNTER → 2021-03-20 09:40 | Outpatient (CLI) | payer MEDICARE ==
[2020-10-24 12:53] VITALS: BMI 22.5
[~2021-03-20 09:40] MED LIST changes: +CELEBREX200 MG PO; +OMNICEF300 MG PO; +PREDNISONE10 MG PO; +VERELAN180 MG PO
== END | disposition home or self-care (01) ==
LOC: D.MRI 09:30
PROVIDERS: ATTEND Clinical Nurse Specialist Family Health
DX: M54.16 Radiculopathy, lumbar region (principal)

== ENCOUNTER → 2021-03-28 09:30 | Outpatient (CLI) | payer MEDICARE ==
[2020-10-24 12:53] VITALS: BMI 22.5
[~2021-03-28 09:30] MED LIST changes: +MACROBID100 MG PO; +PYRIDIUM100 MG PO
== END | disposition home or self-care (01) ==
LOC: D.RT 03-24 10:36
PROVIDERS: ATTEND Nurse Practitioner Family
DX: R06.00 Dyspnea, unspecified (principal)

== ENCOUNTER 2021-03-30 10:30 | Emergency (ER) | payer MEDICARE ==
[~2021-03-30] VITALS: Ht 165.1 cm; Wt 69.1 kg
[~2021-03-30 10:30] MED LIST changes: -MACROBID100 MG PO; -PYRIDIUM100 MG PO
[2021-03-30 10:35] VITALS: BP 133/71; Ht 165.1 cm; Wt 69.1 kg
[2021-03-30 11:48] LABS: BACTERIA MANY HPF (<MOD); BILIRUBIN NEGATIVE (NEGATIVE); KETONE NEGATIVE mg/dL (< 1+); NITRITE NEGATIVE (NEGATIVE); PH 7.5 (5.0-8.0); UROBILINOGEN NORMAL mg/dL (< 2); WHITE CELLS - URINE >182 HPF (0-4)
[2021-03-30 11:53] LABS: AMORPHOUS SEDIMENT OCC LPF (<FEW)
[2021-03-30] MEDS ORDERED: PYRIDIUM100 MG PO (12:17)
[2021-03-30] MEDS ORDERED: MACROBID100 MG PO (12:17)
== END 2021-03-30 12:50 | disposition home or self-care (01) ==
LOC: D.ER 10:30
PROVIDERS: Emergency Medicine
DX: N39.0 Urinary tract infection, site not specified (principal); E11.9 Type 2 diabetes mellitus without complications; I10 Essential (primary) hypertension; E78.5 Hyperlipidemia, unspecified; Z79.84 Long term (current) use of oral hypoglycemic drugs; M54.5 Low back pain